=== PATIENT | male | born 1990 | race Caucasian/White ===

== ENCOUNTER → 2020-06-10 | Outpatient (CLI) | payer BC ==
--- NOTE | 2020-06-10 20:20 | RAD ---
Right hand 3 views. HISTORY: Cat bite right thumb, swelling, pain 3 views were taken of the right hand. There is soft tissue swelling of the right thumb. There is no f racture or osseous abnormality. IMPRESSION: 1. Soft tissue swelling. 2. No acute osseous abnormality right thumb. Electronically signed by: Gm Reese MD (06/10/2020 8:18 PM) [facility]
== END ==
LOC: RAD 19:49
PROVIDERS: ATTEND Nurse Practitioner Family
DX: S61.051A Open bite of right thumb without damage to nail, initial encounter (principal); W55.01XA Bitten by cat, initial encounter; Y93.89 Activity, other specified; Y92.89 Other specified places as the place of occurrence of the external cause; Y99.8 Other external cause status
CPT/HCPCS: 73130